=== PATIENT | male | born 1975 | race Caucasian/White ===

== ENCOUNTER 2024-02-25 09:39 | Outpatient (CLI) | payer BC, SELFPAY ==
--- NOTE | ~2024-02-25 | US_ITS ---
EXAMINATION: US thyroid DATE: 02/25/2024 10:36 INDICATION: Dysphagia TECHNIQUE: Multiple ultrasound images of the thyroid were obtained. COMPARISON: None. FINDINGS: The right thyroid lobe measures 3.2 x 0.9 x 1.6 cm. The left thyroid lobe measures 3.3 x 1.0 x 1.2 c m. No discrete nodules identified. There is normal echotexture, echogenicity and vascular flow throu ghout the thyroid gland. IMPRESSION: 1. Normal thyroid ultrasound. Reviewed, dictated and finalized at location A.
--- NOTE | ~2024-02-25 | XR_ITS ---
EXAMINATION: XR barium swallow DATE: 02/25/2024 10:28 INDICATION: Intermittent dysphagia with foreign body sensation in the throat TECHNIQUE: The patient drank thick barium, gas-producing crystals, and thin barium. Fluoroscopic spot radiographs of the hypopharynx and esophagus were obtained. Fluoroscopy exposure time was 1.8 minut es. A total of 1507 images were recorded. Total DAP was 11.777 Gycm^2 COMPARISON: None. FINDINGS: The pharynx is symmetric and without evidence of mass lesion or mucosal irregularity. The e sophagus is normal without mass or stricture. Esophageal motility is normal. Postoperative changes of prior Robin fundoplication with the wrap position below the diaphragm and with no stricture. There is no hiatal hernia. There was no gastroesophageal reflux with provocative maneuvers. IMPRESSION: 1. Normal esophagram post prior Robin fundoplication. Reviewed, dictated and finalized at location A.
== END 2024-02-25 09:40 | disposition home or self-care (01) ==
LOC: ANHIMG 09:48
PROVIDERS: PCP Physician Assistant; Visit Provider Physician Assistant
DX: R13.19 Other dysphagia (principal); E03.9 Hypothyroidism, unspecified
CPT/HCPCS: 74220; 76536